=== PATIENT | male | born 1940 | race Caucasian/White ===

== ENCOUNTER 2016-10-29 12:16 | Emergency (ER) | payer MEDICARE ==
[2016-10-29 12:35] VITALS: RESP 20
[2016-10-29] MEDS ORDERED: IPRATROPIUM 0.5 MG/2.5 ML NEBU INHALATION STA (13:06)
[2016-10-29] MEDS ORDERED: SODIUM CHLORIDE 0.9% 1,000 ML IV STA ×2 (13:06)
[2016-10-29] MEDS ORDERED: ALBUTEROL NEBULIZED 2.5 MG/3 ML INHALATION STA (13:06)
--- NOTE | 2016-10-29 13:15 | ED ---
General Adult HPI - General Chief complaint: Recheck/Abnormal Lab/Rx Stated complaint: Pnemonia worsening Time Seen by Provider: 10/29/16 13:06 Source: patient, RN notes reviewed, old records reviewed Mode of arrival: ambulatory Limitations: no limitations - History of Present Illness Initial comments: This is a 76-year-old male the ER for evaluation. Patient presented today for evaluation of shortness of breath and chronic cough. Patient is being treated on outpatient basis for pneumonia 2. No improvement. Patient seen recently and had antibiotics changed. Patient denies any fevers. No cough or congestion. Patient denies any specific chest pain. No recent fevers, no travel history, no new medications. Patient is not on an ALINE inhibitor - Related Data Home Medications Medication Instructions Recorded Confirmed Ascorbic Acid [Vitamin C] 500 mg PO DAILY 10/29/16 10/29/16 Aspirin EC [Ecotrin Low Dose] 81 mg PO HS 10/29/16 10/29/16 Cholecalciferol [Vitamin D3] 2,000 unit PO DAILY 10/29/16 10/29/16 Cyanocobalamin [Vitamin B-12] 500 mcg PO DAILY 10/29/16 10/29/16 Levofloxacin [Levaquin] 500 mg PO DAILY 10/29/16 10/29/16 Lisinopril [Zestril] 10 mg PO DAILY 10/29/16 10/29/16 [place]-3 Fatty Acids/Fish Oil [Fish 1 cap PO DAILY 10/29/16 10/29/16 Oil 1,000 mg Softgel] Previous Rx's Medication Instructions Recorded Albuterol Nebulized [Ventolin 2.5 mg INHALATION Q4H PRN #25 nebu 10/29/16 Nebulized] Albuterol Sulfate [Proair Hfa] 1 - 2 puff INHALATION Q4H PRN #1 10/29/16 inhaler predniSONE 50 mg PO DAILY #5 tab 10/29/16 Allergies Allergy/AdvReac Type Severity Reaction Status Date / Time epinephrine Allergy Anaphylaxis Verified 10/29/16 13:06 Review of Systems ROS Statement: Those systems with pertinent positive or pertinent negative responses have been documented in the HPI. ROS Other: All systems not noted in ROS Statement are negative. Past Medical History Past Medical History: Hypertension, Pneumonia History of Any Multi-Drug Resistant Organisms: None Reported Past Surgical History: No Surgical Hx Reported Past Psychological History: No Psychological Hx Reported Smoking Status: Former smoker Past Alcohol Use History: Occasional Past Drug Use History: None Reported General Exam Limitations: no limitations General appearance: alert, in no apparent distress Head exam: Present: atraumatic, normocephalic, normal inspection Eye exam: Present: normal appearance, PERRL, EOMI. Absent: scleral icterus, conjunctival injection, periorbital swelling ENT exam: Present: normal exam, mucous membranes moist Neck exam: Present: normal inspection. Absent: tenderness, meningismus, lymphadenopathy Respiratory exam: Present: normal lung sounds bilaterally. Absent: respiratory distress, wheezes, rales, rhonchi, stridor Cardiovascular Exam: Present: regular rate, normal rhythm, normal heart sounds. Absent: systolic murmur, diastolic murmur, rubs, gallop, clicks GI/Abdominal exam: Present: soft, normal bowel sounds. Absent: distended, tenderness, guarding, rebound, rigid Extremities exam: Present: normal inspection, full ROM, normal capillary refill. Absent: tenderness, pedal edema, joint swelling, calf tenderness Back exam: Present: normal inspection Neurological exam: Present: alert, oriented X3, CN II-XII intact Psychiatric exam: Present: normal affect, normal mood Skin exam: Present: warm, dry, intact, normal color. Absent: rash Course Vital Signs 10/29/16 10/29/16 10/29/16 12:32 13:48 14:09 Temperature 98.5 F Pulse Rate 77 60 68 Respiratory 20 Rate Blood Pressure 159/74 O2 Sat by Pulse 98 Oximetry - Reevaluation(s) Reevaluation #1: 10/29/16 16:18 Patient does have improvement with breathing treatment EKG Findings - EKG Comments: EKG Findings:: EKG shows normal sinus rhythm rate of 60, [place] 196, QRS 80, QTC 438 Medical Decision Making - Medical Decision Making 70 formality ER with persistent cough, bronchitis, patient will be treated appropriately, CK negative for PE lab work is normal patient can be discharged home, discontinue antibiotics - Lab Data Result diagrams: 10/29/16 13:47 10/29/16 13:47 Lab Results 10/29/16 10/29/16 10/29/16 Range/Units 13:30 13:47 13:47 WBC 6.9 (3.8-10.6) k/uL RBC 4.89 (4.30-5.90) m/uL Hgb 14.4 (13.0-17.5) gm/dL Hct 43.6 (39.0-53.0) % MCV 89.2 (80.0-100.0) fL MCH 29.5 (25.0-35.0) pg MCHC 33.1 (31.0-37.0) g/dL RDW 13.4 (11.5-15.5) % Plt Count 299 (150-450) k/uL Neutrophils % 71 % Lymphocytes % 19 % Monocytes % 6 % Eosinophils % 2 % Basophils % 0 % Neutrophils # 4.9 (1.3-7.7) k/uL Lymphocytes # 1.3 (1.0-4.8) k/uL Monocytes # 0.4 (0-1.0) k/uL Eosinophils # 0.1 (0-0.7) k/uL Basophils # 0.0 (0-0.2) k/uL PT 11.5 (9.0-12.0) sec INR 1.2 (<1.1) APTT 21.5 L (22.0-30.0) sec Sodium 142 (137-145) mmol/L Potassium 5.0 (3.5-5.1) mmol/L Chloride 108 H (98-107) mmol/L Carbon Dioxide 25 (22-30) mmol/L Anion Gap 9 mmol/L BUN 21 H (9-20) mg/dL Creatinine 1.10 (0.66-1.25) mg/dL Est GFR (MDRD) Af Amer >60 (>60 ml/min/1.73 sqM) Est GFR (MDRD) Non-Af >60 (>60 ml/min/1.73 sqM) Glucose 87 (74-99) mg/dL Calcium 9.1 (8.4-10.2) mg/dL Magnesium 2.1 (1.6-2.3) mg/dL Total Bilirubin 0.6 (0.2-1.3) mg/dL AST 23 (17-59) U/L ALT 41 (21-72) U/L Alkaline Phosphatase 64 (38-126) U/L Total Creatine Kinase (55-170) U/L CK-MB (CK-2) (0.0-2.4) ng/mL CK-MB (CK-2) Rel Index Troponin I (0.000-0.034) ng/mL NT-Pro-B Natriuret Pep pg/mL Total Protein 6.1 L (6.3-8.2) g/dL Albumin 3.9 (3.5-5.0) g/dL 10/29/16 10/29/16 Range/Units 13:47 13:47 WBC (3.8-10.6) k/uL RBC (4.30-5.90) m/uL Hgb (13.0-17.5) gm/dL Hct (39.0-53.0) % MCV (80.0-100.0) fL MCH (25.0-35.0) pg MCHC (31.0-37.0) g/dL RDW (11.5-15.5) % Plt Count (150-450) k/uL Neutrophils % % Lymphocytes % % Monocytes % % Eosinophils % % Basophils % % Neutrophils # (1.3-7.7) k/uL Lymphocytes # (1.0-4.8) k/uL Monocytes # (0-1.0) k/uL Eosinophils # (0-0.7) k/uL Basophils # (0-0.2) k/uL PT (9.0-12.0) sec INR (<1.1) APTT (22.0-30.0) sec Sodium (137-145) mmol/L Potassium (3.5-5.1) mmol/L Chloride (98-107) mmol/L Carbon Dioxide (22-30) mmol/L Anion Gap mmol/L BUN (9-20) mg/dL Creatinine (0.66-1.25) mg/dL Est GFR (MDRD) Af Amer (>60 ml/min/1.73 sqM) Est GFR (MDRD) Non-Af (>60 ml/min/1.73 sqM) Glucose (74-99) mg/dL Calcium (8.4-10.2) mg/dL Magnesium (1.6-2.3) mg/dL Total Bilirubin (0.2-1.3) mg/dL AST (17-59) U/L ALT (21-72) U/L Alkaline Phosphatase (38-126) U/L Total Creatine Kinase 172 H (55-170) U/L CK-MB (CK-2) 4.6 H* (0.0-2.4) ng/mL CK-MB (CK-2) Rel Index 2.7 Troponin I <0.012 (0.000-0.034) ng/mL NT-Pro-B Natriuret Pep 91 pg/mL Total Protein (6.3-8.2) g/dL Albumin (3.5-5.0) g/dL - Radiology Data Radiology results: report reviewed (Chest x-ray 2 view negative, CTA negative), image reviewed Disposition Clinical Impression: Chronic bronchitis, Cough Disposition: HOME SELF-CARE Condition: Good Instructions: Chronic Cough (ED), Acute Bronchitis (ED), Chronic Bronchitis (ED ) Prescriptions: Albuterol Nebulized [Ventolin Nebulized] 2.5 mg INHALATION Q4H PRN #25 nebu PRN Reason: Shortness Of Breath Albuterol Sulfate [Proair Hfa] 1 - 2 puff INHALATION Q4H PRN #1 inhaler PRN Reason: Shortness Of Breath predniSONE 50 mg PO DAILY #5 tab Referrals: Romero Last MD [Primary Care Provider] - 1-2 days
--- NOTE | 2016-10-29 13:53 | XR ---
EXAMINATION TYPE: XR chest 2V DATE OF EXAM: 10/29/2016 1:37 PM COMPARISON: Prior chest x-ray 10 November 2009 HISTORY: Pneumonia, difficulty breathing TECHNIQUE: Frontal and lateral views of the chest are obtained. FINDINGS: There is no focal air space opacity, pleural effusion, or pneumothorax seen. The cardiac silhouette size is within normal limits. There is a spinal curvature. The osseous structures are int act. IMPRESSION: No acute cardiopulmonary process.
[2016-10-29 14:12] LABS: INR 1.2 (<1.1); Prothrombin Time 11.5 sec (9.0-12.0)
[2016-10-29 14:16] LABS: Partial Thromboplastin Time 21.5 sec (22.0-30.0)
[2016-10-29 14:18] LABS: Basophils % (A) 0 %; CH 29.5; CHCM 33.3; Eosinophils # (A) 0.1 k/uL (0-0.7); Eosinophils % (A) 2 %; HCT 43.6 % (39.0-53.0); HGB 14.4 gm/dL (13.0-17.5); Luc # (Auto) 0.11; Luc % (Auto) 2; Lymphocytes # (A) 1.3 k/uL (1.0-4.8); Lymphocytes % (A) 19 %; MCH 29.5 pg (25.0-35.0); MCHC 33.1 g/dL (31.0-37.0); MCV 89.2 fL (80.0-100.0); Mean Platelet Volume 6.3; Monocytes # (A) 0.4 k/uL (0-1.0); Monocytes % (A) 6 %; Neutrophils # (A) 4.9 k/uL (1.3-7.7); Neutrophils % (A) 71 %; RBC 4.89 m/uL (4.30-5.90); RDW 13.4 % (11.5-15.5); WBC 6.9 k/uL (3.8-10.6); WBC (Perox) 7.16
[2016-10-29] MEDS ORDERED: RX INFO: IV CONTRAST WAS GIVEN 1 EACH MISC MISCELLANE PRN (14:23)
[2016-10-29 14:34] LABS: ALT 41 U/L (21-72); AST 23 U/L (17-59); Alkaline Phosphatase 64 U/L (38-126); Anion Gap 9 mmol/L; Blood Urea Nitrogen 21 mg/dL (9-20); Calcium 9.1 mg/dL (8.4-10.2); Carbon Dioxide 25 mmol/L (22-30); Chloride 108 mmol/L (98-107); Creatine Kinase 172 U/L (55-170); Glucose 87 mg/dL (74-99); Magnesium 2.1 mg/dL (1.6-2.3); Non-African American GFR(MDRD) >60 (>60 ml/min/1.73 sqM); Sodium 142 mmol/L (137-145); Total Bilirubin 0.6 mg/dL (0.2-1.3); Total Protein 6.1 g/dL (6.3-8.2)
[2016-10-29 14:46] LABS: Troponin I <0.012 ng/mL (0.000-0.034)
[2016-10-29 14:52] LABS: Creatine Kinase MB 4.6 ng/mL (0.0-2.4)
--- NOTE | 2016-10-29 16:10 | CT ---
EXAMINATION TYPE: CT angio chest DATE OF EXAM: 10/29/2016 3:57 PM COMPARISON: NONE HISTORY: Recent pneumonia. Difficulty breathing. CT DLP: 538.00 mGycm Automated exposure control for dose reduction was used. CONTRAST: CTA scan of the thorax is performed with IV Contrast, patient injected with 73 mL of Omnipaque 350, p ulmonary embolism protocol. MIP images are created and reviewed. FINDINGS: LUNGS: Exam is degraded by respiratory motion artifact making evaluation suboptimal. Dependent atelec tasis in both lower lobes is present. No suspicious parenchymal nodule or mass is present bilaterally . No pleural effusion or pneumothorax is seen. Tracheobronchial tree is patent. No suspicious consoli dation or infiltrate is present. MEDIASTINUM: There is satisfactory enhancement of the pulmonary artery and its branches, there is no CT evidence for pulmonary embolism. There are no greater than 1 cm hilar or mediastinal lymph nodes. A few slightly prominent but subcentimeter paratracheal and subcarinal lymph nodes as well as bilate ral hilar lymph nodes are present. No cardiomegaly or pericardial effusion is seen. Mild atheroscler otic change is seen in a slightly ectatic thoracic aorta. 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 There is multilevel spurring in the thoracic spine.. IMPRESSION: 1. NO CT EVIDENCE FOR PULMONARY EMBOLISM. 2. NO SUSPICIOUS ACUTE PULMONARY PROCESS IS IDENTIFIED.
[2016-10-29] MEDS ORDERED: methylPREDNISolone SOD SUCCI 125 MG/2 ML VIAL IV STA (16:16)
[2016-10-29 16:43] VITALS: BP 166/80; PULSE 73; TEMP 98
== END 2016-10-29 17:05 | disposition home or self-care (01) ==
LOC: EC 12:16
DX: J42 Unspecified chronic bronchitis (principal); I10 Essential (primary) hypertension; Z87.01 Personal history of pneumonia (recurrent); Z87.891 Personal history of nicotine dependence; Z79.82 Long term (current) use of aspirin; Z79.899 Other long term (current) drug therapy; Z88.8 Allergy status to other drugs, medicaments and biological substances
CPT/HCPCS: 99285; 96374; 96361 ×3; 36415; 94640; 93005; 83880; 80053; 82550; 82553; 83735; 84484; 85025; 85610; 85730; 87040; 71020; 71275; J2930; Q9967

== ENCOUNTER → 2017-06-10 | Outpatient (CLI) | payer MEDICARE ==
--- NOTE | 2017-06-10 14:02 | XR ---
EXAMINATION TYPE: XR chest 2V DATE OF EXAM: 06/10/2017 COMPARISON: Prior chest x-ray 10/29/2016 HISTORY: Cough, R05 TECHNIQUE: Frontal and lateral views of the chest are obtained. FINDINGS: There is no focal air space opacity, pleural effusion, or pneumothorax seen. The cardiac silhouette size is within normal limits. There may be coronary artery calcifications. The osseous st ructures are intact. IMPRESSION: No acute cardiopulmonary process.
== END | disposition home or self-care (01) ==
LOC: RADXRMAIN 12:47
PROVIDERS: ATTEND Family Medicine
DX: R05 Cough (principal)
CPT/HCPCS: 71020

== ENCOUNTER 2017-06-13 16:13 | Emergency (ER) | payer MEDICARE ==
[2017-06-13 16:22] VITALS: BP 156/72; PULSE 73; RESP 18; TEMP 98.2
--- NOTE | 2017-06-13 16:47 | XR ---
EXAMINATION TYPE: XR knee complete LT DATE OF EXAM: 06/13/2017 CLINICAL HISTORY: Fall 3 weeks ago with knee pain. TECHNIQUE: Three views of the left knee are obtained. COMPARISON: None. FINDINGS: There is no acute fracture/dislocation evident in left knee. The tri-compartment joint sp aces appear within normal limits. The overlying soft tissue appears unremarkable. 6 mm density over the region of the iliotibial band and vastus lateralis could relate to foreign body or calcific tendi nitis. Suprapatellar and infrapatellar enthesophytes are noted. Incidental note is made of a phleboli th. IMPRESSION: 1. There is no acute fracture or dislocation in the left knee. 2. 6 mm density overlying the iliotibial band and vastus lateralis. This could relate to a foreign colton dy or calcific tendinitis.
[2017-06-13] MEDS ORDERED: DIPH,PERTUS(ACELL)TETVAC-LF 0.5 ML VIAL IM ONE (16:56)
[2017-06-13] MEDS ORDERED: GELATIN SPONGE,ABSORB (SMALL) 1 EACH SPONGE TOPICAL STA (16:56)
--- NOTE | 2017-06-13 17:00 | ED ---
General Adult HPI - General Chief complaint: Extremity Injury, Lower Stated complaint: Knee Pain Time Seen by Provider: 06/13/17 16:20 Source: patient, RN notes reviewed Mode of arrival: wheelchair Limitations: no limitations - History of Present Illness Initial comments: Patient 77-year-old male who presents emergency room today with a chief complaint of injury to left knee. Does admit that he went to turn and his left knee gave out. He states it caused him fall down. States something similar happen a few weeks ago did see an orthopedic doctor have his knee drained at that time. Patient does admit to pain is worse with ambulation. He denies any other injuries or complaints. Patient denies any recent fever, chills, shortness of breath, chest pain, back pain, abdominal pain, nausea or vomiting, numbness or tingling, dysuria or hematuria, constipation or diarrhea, headaches or visual changes, or any other complaints. - Related Data Home Medications Medication Instructions Recorded Confirmed Ascorbic Acid [Vitamin C] 500 mg PO DAILY 10/29/16 10/29/16 Aspirin EC [Ecotrin Low Dose] 81 mg PO HS 10/29/16 10/29/16 Cholecalciferol [Vitamin D3] 2,000 unit PO DAILY 10/29/16 10/29/16 Cyanocobalamin [Vitamin B-12] 500 mcg PO DAILY 10/29/16 10/29/16 Levofloxacin [Levaquin] 500 mg PO DAILY 10/29/16 10/29/16 Lisinopril [Zestril] 10 mg PO DAILY 10/29/16 10/29/16 [place]-3 Fatty Acids/Fish Oil [Fish 1 cap PO DAILY 10/29/16 10/29/16 Oil 1,000 mg Softgel] Previous Rx's Medication Instructions Recorded Albuterol Nebulized [Ventolin 2.5 mg INHALATION Q4H PRN #25 nebu 10/29/16 Nebulized] Albuterol Sulfate [Proair Hfa] 1 - 2 puff INHALATION Q4H PRN #1 10/29/16 inhaler Benzonatate [Tessalon Perles] 100 mg PO TID #30 cap 10/29/16 predniSONE 50 mg PO DAILY #5 tab 10/29/16 Allergies Allergy/AdvReac Type Severity Reaction Status Date / Time epinephrine Allergy Anaphylaxis Verified 06/13/17 16:22 Review of Systems ROS Statement: Those systems with pertinent positive or pertinent negative responses have been documented in the HPI. ROS Other: All systems not noted in ROS Statement are negative. Past Medical History Past Medical History: Hypertension, Pneumonia History of Any Multi-Drug Resistant Organisms: None Reported Past Surgical History: No Surgical Hx Reported Past Psychological History: No Psychological Hx Reported Smoking Status: Former smoker Past Alcohol Use History: Occasional Past Drug Use History: None Reported General Exam - General Exam Comments Initial Comments: General: The patient is awake and alert, in no distress, and does not appear acutely ill. Neck: The neck is supple, there is no tenderness or JVD. Cardiovascular: There is a regular rate and rhythm. No murmur, rub or gallop is appreciated. Respiratory: Lungs are clear to auscultation, respirations are non-labored, breath sounds are equal. No wheezes, stridor, rales, or rhonchi. Musculoskeletal: Normal appearance of the left knee no obvious deformity. Shows good range of motion. Sensation intact pulses bilateral 2. Neurological: A&O x 3. CN II-XII intact, There are no obvious motor or sensory deficits. Coordination appears grossly intact. Speech is normal. Skin: Skin is warm and dry and no rashes or lesions are noted. Psychiatric: Normal mood and affect. Limitations: no limitations Course Vital Signs 06/13/17 16:21 Temperature 98.2 F Pulse Rate 73 Respiratory 18 Rate Blood Pressure 156/72 O2 Sat by Pulse 95 Oximetry Medical Decision Making - Medical Decision Making X-rays are negative for any acute abnormalities. Results were discussed with patient. Patient placed in knee immobilizer here the emergency room.. Continue with a walker. Advised to follow-up with orthopedic doctor over the next 2 days. Advised return if symptoms increase or worsen or for any other concerns. Disposition Clinical Impression: Knee injury Disposition: HOME SELF-CARE Condition: Good Instructions: Knee Pain (ED) Additional Instructions: Please use a knee immobilizer up and moving around. Please do not sleep with this on. Please use walker for stability as discussed. Please follow-up with orthopedic doctor next 2 days return here to emergency room if any symptoms increase worsen or for any other concerns. Referrals: Familia Ivey DO [Primary Care Provider] - 1-2 days Jean Carlos Chahal MD [STAFF PHYSICIAN] - 1-2 days Time of Disposition: 17:05
== END 2017-06-13 17:10 | disposition home or self-care (01) ==
LOC: EC 16:13
DX: S89.92XA Unspecified injury of left lower leg, initial encounter (principal); I10 Essential (primary) hypertension; Z87.891 Personal history of nicotine dependence; Z79.82 Long term (current) use of aspirin; Z79.899 Other long term (current) drug therapy; Z88.8 Allergy status to other drugs, medicaments and biological substances; Z87.01 Personal history of pneumonia (recurrent); X50.1XXA Overexertion from prolonged static or awkward postures, initial encounter; Y93.89 Activity, other specified
CPT/HCPCS: 73562; 99283; L1830 ×2

== ENCOUNTER → 2017-07-02 | Outpatient (CLI) | payer MEDICARE | END | disposition home or self-care (01) | LOC: LABWHC1 12:01 | PROVIDERS: ATTEND Family Medicine | DX: I10 Essential (primary) hypertension (principal) | CPT/HCPCS: 36415; 93005 ==

== ENCOUNTER → 2023-01-22 | Outpatient (CLI) | payer MEDICARE ==
--- NOTE | 2023-01-22 13:28 | US ---
EXAMINATION TYPE: US venous doppler duplex LE RT DATE OF EXAM: 01/22/2023 1:15 PM COMPARISON: NONE CLINICAL HISTORY: M79.604 PAIN IN RIGHT LEG. Pt states right leg pain SIDE PERFORMED: Right TECHNIQUE: The lower extremity deep venous system is examined utilizing real time linear array sonog elli with graded compression, doppler sonography and color-flow sonography. VESSELS IMAGED: Common Femoral Vein Deep Femoral Vein Greater Saphenous Vein * Femoral Vein Popliteal Vein Small Saphenous Vein * Proximal Calf Veins (* superficial vessels) Right Leg: Negative for DVT Attempted to call Dr's office at time of exam, no answer IMPRESSION: No evidence for DVT.
== END | disposition home or self-care (01) ==
LOC: RADUSWWP 12:55
PROVIDERS: ATTEND Family Medicine
DX: M79.604 Pain in right leg (principal)

== ENCOUNTER → 2023-11-26 | Outpatient (CLI) | payer MEDICARE ==
--- NOTE | 2023-11-26 17:50 | CA ---
Transthoracic Echo Report Name: Tony Mancilla Age: 83 Gender: M : 1940 Exam Date: 11/26/2023 14:36 Exam Location: [facility] Ht (in): 71 Wt (lb): 210 Ordering Physician: Familia Ivey DO Attending/Referring Phys: Amina Garcia [facility] [employer] Shiva Padilla RDCS Procedure CPT: Indications: R06.09 Other forms of dyspnea Cardiac Hx: Technical Quality: Fair Contrast 1: Total Dose (mL): Contrast 2: Total Dose (mL): MEASUREMENTS (Male / Female) Normal Values 2D ECHO LV Diastolic Diameter PLAX 5.2 cm 4.2 - 5.9 / 3.9 - 5.3 cm LV Systolic Diameter PLAX 3.7 cm IVS Diastolic Thickness 1.1 cm 0.6 - 1.0 / 0.6 - 0.9 cm LVPW Diastolic Thickness 0.9 cm 0.6 - 1.0 / 0.6 - 0.9 cm LV Relative Wall Thickness 0.4 Aortic Root Diameter 3.5 cm LA Systolic Diameter LX 4.6 cm 3.0 - 4.0 / 2.7 - 3.8 cm DOPPLER AV Peak Velocity 132.3 cm/s AV Peak Gradient 7.0 mmHg LVOT Peak Velocity 121.3 cm/s LVOT Peak Gradient 5.9 mmHg Mitral E Point Velocity 112.9 cm/s Mitral A Point Velocity 130.4 cm/s Mitral E to A Ratio 0.9 MV Deceleration Time 266.6 ms MV E' Velocity 10.4 cm/s Mitral E to MV E' Ratio 10.8 TR Peak Velocity 253.9 cm/s TR Peak Gradient 25.8 mmHg PV Peak Velocity 105.8 cm/s PV Peak Gradient 4.5 mmHg FINDINGS Left Ventricle Left ventricular ejection fraction is estimated at 55-60 %.normal left ventricular wall motion. Left ventricular cavity size normal. Normal left ventricular diastolic filling pattern. Right Ventricle Normal right ventricular size and function. Right Atrium Right atrium not well visualized. Left Atrium Mildly increased left atrial diameter. Mitral Valve Trace mitral regurgitation.structurally normal mitral valve. Aortic Valve Trileaflet aortic valve.no aortic valve stenosis or regurgitation. Tricuspid Valve Trace to mild tricuspid regurgitation.structurally normal tricuspid valve. Pulmonic Valve No pulmonic regurgitation.pulmonic valve not well visualized. Pericardium No pericardial effusion. Aorta Normal size aortic root and proximal ascending aorta. CONCLUSIONS 1. Normal left ventricular size and systolic function 2. Trace to mild mitral and tricuspid regurgitation Previewed by: Dr. Devin Carmona MD (Electronically Signed) Final Date: 26 November 2023 17:49
== END | disposition home or self-care (01) ==
LOC: RADECHMAIN 14:27
PROVIDERS: ATTEND Family Medicine
DX: I34.0 Nonrheumatic mitral (valve) insufficiency (principal); I36.1 Nonrheumatic tricuspid (valve) insufficiency; R06.09 Other forms of dyspnea
CPT/HCPCS: 93306

== ENCOUNTER → 2024-03-09 | Outpatient (CLI) | payer MEDICARE ==
--- NOTE | 2024-03-10 08:14 | US ---
EXAMINATION TYPE: US prostate transrectal DATE OF EXAM: 03/09/2024 COMPARISON: NONE CLINICAL INDICATION: Male, 83 years old with history of R97.20 ELEVATED PSA; This examination was performed using the transrectal probe. EXAM MEASUREMENTS: Gland Size: 5.4 x 4.2 x 6.2 Volume: 73.0 Predicted PSA: 8.76 Actual PSA (if available):Not available at this time IMPRESSION: No suspicious lesions identified. Consider correlation with PSA and consider a more sens itive exam in the prostate MRI if this concern for clinically significant prostate adenocarcinoma. Predicted PSA = volume x 0.12 ng/ml Calculated Volume = 0.5236 x L x W x H
== END | disposition home or self-care (01) ==
LOC: RADUSWWP 15:09
PROVIDERS: ATTEND Family Medicine
DX: R97.20 Elevated prostate specific antigen [PSA] (principal)
CPT/HCPCS: 76872

== ENCOUNTER 2024-06-15 21:31 | Emergency (ER) | payer MEDICARE ==
[2024-06-15 21:42] VITALS: TEMP 97.9
--- NOTE | 2024-06-15 22:06 | ED ---
Fall HPI - General Chief Complaint: Fall Stated Complaint: Fall-Head Injury Time Seen by Provider: 06/15/24 21:45 Source: patient, family, RN notes reviewed Mode of arrival: ambulatory - History of Present Illness Initial Comments: 84-year-old male presents emergency department chief complaint of a fall. Patient states that he was bending over picking up something when he fell forward on the right side of his face. Patient denies loss of consciousness at the time of the event. He states that he took 800 mg of ibuprofen approximately half hour after the event occurred at 1930. Currently he is denying dizziness, lightheadedness, blurry or double vision, severe headache or acute neurological changes. Patient is not on blood thinners. He had a nosebleed from his right naris after the fall and was pulling his head backwards and is experiencing neck pain as well, however is unaware if this pain is due to holding his head backwards or from the fall. - Related Data Home Medications Medication Instructions Recorded Confirmed Ascorbic Acid [Vitamin C] 500 mg PO DAILY 10/29/16 10/29/16 Aspirin EC [Ecotrin Low Dose] 81 mg PO HS 10/29/16 10/29/16 Cholecalciferol [Vitamin D3] 2,000 unit PO DAILY 10/29/16 10/29/16 Cyanocobalamin [Vitamin B-12] 500 mcg PO DAILY 10/29/16 10/29/16 Levofloxacin [Levaquin] 500 mg PO DAILY 10/29/16 10/29/16 [place]-3 Fatty Acids/Fish Oil [Fish 1 cap PO DAILY 10/29/16 10/29/16 Oil 1,000 mg Softgel] lisinopriL [Zestril] 10 mg PO DAILY 10/29/16 10/29/16 Previous Rx's Medication Instructions Recorded Albuterol Nebulized [Ventolin 2.5 mg INHALATION Q4H PRN #25 nebu 10/29/16 Nebulized] Albuterol Sulfate [Proair Hfa] 1 - 2 puff INHALATION Q4H PRN #1 10/29/16 inhaler Benzonatate [Tessalon Perles] 100 mg PO TID #30 cap 10/29/16 predniSONE 50 mg PO DAILY #5 tab 10/29/16 Allergies Allergy/AdvReac Type Severity Reaction Status Date / Time epinephrine Allergy Anaphylaxis Verified 06/15/24 21:36 Review of Systems ROS Statement: Those systems with pertinent positive or pertinent negative responses have been documented in the HPI. ROS Other: All systems not noted in ROS Statement are negative. Past Medical History Past Medical History: Asthma, Hypertension, Pneumonia Additional Past Medical History / Comment(s): neuropathy History of Any Multi-Drug Resistant Organisms: None Reported Past Surgical History: No Surgical Hx Reported Additional Past Surgical History / Comment(s): L knee Past Psychological History: No Psychological Hx Reported Smoking Status: Former smoker Past Alcohol Use History: Occasional Past Drug Use History: None Reported General Exam Limitations: no limitations General appearance: alert, in no apparent distress Head exam: Present: atraumatic, normocephalic, normal inspection Eye exam: Present: PERRL, EOMI, periorbital swelling (right superior eyelid e shima and ecchymosis), periorbital tenderness. Absent: scleral icterus, conjunctival injection ENT exam: Present: normal exam, mucous membranes moist Neck exam: Present: normal inspection. Absent: tenderness, meningismus, lymphadenopathy Respiratory exam: Present: normal lung sounds bilaterally. Absent: respiratory distress, wheezes, rales, rhonchi, stridor Cardiovascular Exam: Present: regular rate, normal rhythm, normal heart sounds. Absent: systolic murmur, diastolic murmur, rubs, gallop, clicks GI/Abdominal exam: Present: soft, normal bowel sounds. Absent: distended, tenderness, guarding, rebound, rigid Extremities exam: Present: normal inspection, full ROM, normal capillary refill. Absent: tenderness, pedal edema, joint swelling, calf tenderness Back exam: Present: normal inspection Neurological exam: Present: alert, oriented X3, CN II-XII intact Skin exam: Present: other (abrasion located over the right chin, forehead, and nasal bridge. dried blood of the rigth nares, no active bleeding) Course Vital Signs 06/15/24 21:36 Temperature 97.9 F Pulse Rate 82 Respiratory 18 Rate Blood Pressure 145/64 O2 Sat by Pulse 95 Oximetry Medical Decision Making - Medical Decision Making Was pt. sent in by a medical professional or institution (, PA, BLOW OFF WORKER, urgent care, hospital, or shelter...) When possible be specific @ -No Did you speak to anyone other than the patient for history (EMS, parent, family, police, friend...)? What history was obtained from this source @ -No Did you review nursing and triage notes (agree or disagree)? Why? @ -I reviewed and agree with nursing and triage notes Were old charts reviewed (outside hosp., previous admission, EMS record, old EKG, old radiological studies, urgent care reports/EKG's, shelter records)? Report findings @ -No old charts were reviewed Differential Diagnosis (chest pain, altered mental status, abdominal pain women, abdominal pain men, vaginal bleeding, weakness, fever, dyspnea, syncope, headache, dizziness, GI bleed, back pain, seizure, CVA, palpatations, mental health, musculoskeletal)? @ -Contusion, abrasion, laceration, intracranial hemorrhage, nasal bone fracture, facial bone fracture, this list is not all inclusive EKG interpreted by me (3pts min.). @ -none X-rays interpreted by me (1pt min.). @ -None done CT interpreted by me (1pt min.). @ -CT of the head and cervical spine without contrast no acute intracranial abnormalities, no abnormalities of the cervical spine. CT of the facial bones without contrast no evidence of facial bone trauma or fracture. U/S interpreted by me (1pt. min.). @ -None done What testing was considered but not performed or refused? (CT, X-rays, U/S, labs)? Why? @ -None What meds were considered but not given or refused? Why? @ -None Did you discuss the management of the patient with other professionals (professionals i.e. , PA, BLOW OFF WORKER, lab, RT, psych nurse, social media manager, clinical sales consultant, teacher, freedom of information officer, bilingual case manager)? Give summary @ -No Was smoking cessation discussed for >3mins.? @ -No Was critical care preformed (if so, how long)? @ -No Were there social determinants of health that impacted care today? How? (Homelessness, low income, unemployed, alcoholism, drug addiction, transportat ion, low edu. Level, literacy, decrease access to med. care, [facility], rehab)? @ -No Was there de-escalation of care discussed even if they declined (Discuss DNR or withdrawal of care, Hospice)? DNR status @ -No What co-morbidities impacted this encounter? (DM, HTN, Smoking, COPD, CAD, Cancer, CVA, ARF, Chemo, Hep., AIDS, mental health diagnosis, sleep apnea, morbid obesity)? @ -None Was patient admitted / discharged? Hospital course, mention meds given and route, prescriptions, significant lab abnormalities, going to OR and other pertinent info. @ -Discharge. 84-year-old male with a fall. On examination patient noted to have ecchymosis over the right superior eye. Patient is neurologically intact with no acute findings. There are multiple abrasions as well over the face including the eyebrow, nose, chin. Area was cleansed and topical mupirocin applied over the abrasions. CT of the head and neck and CT the facial bones negative for acute process. All questions answered at bedside strict return prior discussed with the patient he is verbalized understanding. Discussed with Dr. Fletcher Undiagnosed new problem with uncertain prognosis? @ -No Drug Therapy requiring intensive monitoring for toxicity (Heparin, Nitro, Insulin, Cardizem)? @ -No Were any procedures done? @ -No Diagnosis/symptom? @ -Contusion, fall, abrasion Acute, or Chronic, or Acute on Chronic? @ -Acute Uncomplicated (without systemic symptoms) or Complicated (systemic symptoms)? @ -uncomplicated Side effects of treatment? @ -No Exacerbation, Progression, or Severe Exacerbation? @ -No Poses a threat to life or bodily function? How? (Chest pain, USA, MA, pneumonia, PE, COPD, DKA, ARF, appy, cholecystitis, CVA, Diverticulitis, Homicidal, Suicidal, threat to staff... and all critical care pts) @ -No Disposition Clinical Impression: Fall, Contusion, Abrasion Disposition: HOME SELF-CARE Condition: Good Instructions (If sedation given, give patient instructions): Fall Prevention for Older Adults (ED), Abrasion (ED) Additional Instructions: Return to the emergency department for any new or worsening symptoms. Continue to ice affected areas and keep abrasions clean and dry. Is patient prescribed a controlled substance at d/c from ED?: No Referrals: Familia Ivey DO [Primary Care Provider] - 1-2 days Time of Disposition: 00:18
[2024-06-15] MEDS: DIPH,PERTUS(ACELL)TETVAC-LF 0.5 ML VIAL IM ONE (22:36)
[2024-06-15] MEDS: BACITRACIN OINT 1 EACH PACKET TOPICAL ONE (22:42)
--- NOTE | 2024-06-16 00:08 | CT ---
EXAM: CT Head Without Intravenous Contrast CLINICAL HISTORY: ITS.REASON CT Reason: fall, injury TECHNIQUE: Axial computed tomography images of the head/brain without intravenous contrast. CTDI is 12.95 mGy and DLP is 343.5 mGy-cm. This CT exam was performed using one or more of the following dose reduction techniques: automated exposure control, adjustment of the mA and/or kV according to patient size, and/or use of iterative reconstruction technique. COMPARISON: No relevant prior studies available. FINDINGS: Brain: Age-related cerebral volume loss. Periventricular and subcortical white matter hypoattenuation, consistent with chronic microangiopathy. No acute intracranial hemorrhage. No midline shift or mass effect. Ventricles: Unremarkable. No ventriculomegaly. Bones/joints: Unremarkable. No acute fracture. Soft tissues: RIGHT periorbital soft tissue swelling. Sinuses: Unremarkable as visualized. No acute sinusitis. Mastoid air cells: Unremarkable as visualized. No mastoid effusion. IMPRESSION: 1. No acute intracranial hemorrhage. No midline shift or mass effect. 2. RIGHT periorbital soft tissue swelling. EXAM: CT Cervical Spine Without Intravenous Contrast CLINICAL HISTORY: ITS.REASON CT Reason: fall, injury TECHNIQUE: Axial computed tomography images of the cervical spine without intravenous contrast. CTDI is 13.9 mGy and DLP is 452.3 mGy-cm. This CT exam was performed using one or more of the following dose reduction techniques: automated exposure control, adjustment of the mA and/or kV according to patient size, and/or use of iterative reconstruction technique. COMPARISON: No relevant prior studies available. FINDINGS: The vertebral body heights are maintained. The craniocervical junction is intact. The atlanto-dens interval is maintained. The dens is intact. There is no spondylolisthesis. Multilevel cervical spondylosis and degenerative disc disease. Straightening of the cervical lordosis. The unenhanced neck soft tissues are grossly unremarkable. The visualized lung apices are grossly clear. IMPRESSION: No acute fracture or subluxation of the cervical spine.
--- NOTE | 2024-06-16 00:13 | CT ---
EXAM: CT Maxillofacial Without Intravenous Contrast CLINICAL HISTORY: ITS.REASON CT Reason: FALL, FACIAL ABRASIONS/PAIN TECHNIQUE: Axial computed tomography images of the face without intravenous contrast. CTDI is 12.9 mGy and DLP is 193.5 mGy-cm. This CT exam was performed using one or more of the following dose reduction techniques: automated exposure control, adjustment of the mA and/or kV according to patient size, and/or use of iterative reconstruction technique. COMPARISON: No relevant prior studies available. FINDINGS: The mandible is intact. Intact maxillary alveolus. The orbital rims and floors are intact. The intraorbital contents are grossly unremarkable. RIGHT periorbital soft tissue swelling. Intact nasal bones, nasal septum, and maxillary spines. The zygomatic arches and pterygoid processes are intact. 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 IMPRESSION: No facial bone fracture. RIGHT periorbital soft tissue swelling.
[2024-06-16 00:44] VITALS: BP 144/71; PULSE 67; RESP 16
== END 2024-06-16 00:44 | disposition home or self-care (01) ==
LOC: EC 21:31
DX: S00.93XA Contusion of unspecified part of head, initial encounter (principal); Z87.891 Personal history of nicotine dependence; Z88.8 Allergy status to other drugs, medicaments and biological substances; Z23 Encounter for immunization; W18.30XA Fall on same level, unspecified, initial encounter
CPT/HCPCS: 70450; 70486; 72125; 90471; 90715; 99283